=== PATIENT | female | born 1960 | race Caucasian/White ===

== ENCOUNTER 2020-09-12 08:04 | Outpatient (REF) | payer OTHER, SELFPAY ==
--- NOTE | ~2020-09-12 | MM_ITS ---
EXAMINATION: MM SCREENING DIGITAL BREAST TOMOSYNTHESIS, BILATERAL CLINICAL INFORMATION: Screening. Asymptomatic. The lifetime risk of breast cancer based on the Tyrer-Cuzick Model is 7%. COMPARISON: Mammography: 04/22/2019, 04/02/2018 TECHNIQUE: Digital breast tomosynthesis is performed in both the craniocaudal and mediolateral oblique views along with computer-aided detection (CAD). Synthesized 2D images are generated from the tomosynthesis. FINDINGS: There are scattered areas of fibroglandular density (ACR BI-RADS breast composition Category b). There are no significant masses, abnormal calcifications, or other abnormalities. There is a smooth oval nodule again seen mid upper outer left breast similar to prior exams. No developing density. The axilla and skin contours are unremarkable. MM/MM tomosynthesis screening BI IMPRESSION: No significant changes from prior exams. ASSESSMENT: BI-RADS 2: Benign RECOMMENDATION: Routine annual mammography screening. This patient's information was entered into a reminder system with a target due date for their next mammogram.
== END 2020-09-12 08:05 | disposition home or self-care (01) ==
LOC: HO.MAMMO 08:04
PROVIDERS: Visit Provider Family Medicine
DX: Z12.31 Encounter for screening mammogram for malignant neoplasm of breast (principal)
CPT/HCPCS: 77063; 77067

== ENCOUNTER 2021-09-13 14:36 | Outpatient (REF) | payer OTHER, SELFPAY ==
--- NOTE | ~2021-09-13 | MM_ITS ---
EXAMINATION: MM SCREENING DIGITAL BREAST TOMOSYNTHESIS, BILATERAL CLINICAL INFORMATION: Screening. Asymptomatic. The lifetime risk of breast cancer based on the Tyrer-Cuzick Model is 8%. COMPARISON: Mammography: 09/12/2020, 04/22/2019, 04/02/2018 TECHNIQUE: Digital breast tomosynthesis is performed in both the craniocaudal and mediolateral oblique views along with computer-aided detection (CAD). Synthesized 2D images are generated from the tomosynthesis. FINDINGS: There are scattered areas of fibroglandular density (ACR BI-RADS breast composition Category b). There are no significant masses, abnormal calcifications, or other abnormalities. Parenchymal pattern is similar to prior exams. Again, there is smooth nodule mid outer left breast similar to prior studies. The axilla are unremarkable. No significant changes. MM/MM tomosynthesis screening BI IMPRESSION: No mammographic evidence of malignancy. ASSESSMENT: BI-RADS 2: Benign RECOMMENDATION: Routine annual mammography screening. This patient's information was entered into a reminder system with a target due date for their next mammogram.
== END 2021-09-13 14:37 | disposition home or self-care (01) ==
LOC: HO.MAMMO 14:36
PROVIDERS: PCP Family Medicine; Visit Provider Family Medicine
DX: Z12.31 Encounter for screening mammogram for malignant neoplasm of breast (principal)
CPT/HCPCS: 77063; 77067

== ENCOUNTER 2021-11-18 15:45 | Emergency (ER) | payer OTHER, SELFPAY | END 2021-11-18 16:48 | disposition left against medical advice (07) | PROVIDERS: Emergency Provider Emergency Medicine | DX: S09.90XA Unspecified injury of head, initial encounter (principal); W19.XXXA Unspecified fall, initial encounter; Y93.9 Activity, unspecified; Y92.9 Unspecified place or not applicable; Y99.9 Unspecified external cause status ==

== ENCOUNTER 2021-11-26 13:17 | Outpatient (REF) | payer OTHER, SELFPAY ==
--- NOTE | ~2021-11-26 | CT_ITS ---
EXAMINATION: CT HEAD WITHOUT CONTRAST CLINICAL INFORMATION: 61-year-old with history of concussion. COMPARISON: None. TECHNIQUE: Contiguous axial imaging was performed from the skull base to vertex without intravenous administration of contrast. This CT examination was performed using dose optimization techniques as appropriate, variously including the following: *Automated exposure control *Adjustment of mA and/or kV according to patient size (this includes techniques or standardized protocols for targeted exams where dose is matched to indication/reason for exam; i.e. extremities or head) *Use of iterative reconstruction technique DLP: 712 mGy-cm. FINDINGS: Brain Volume: Normal for age within the limitations of qualitative assessment. Structural: No malformations. Brain and Meninges: The brain parenchyma is normal in morphology and attenuation. Zavala-white matter differentiation is well maintained. Mildly prominent perivascular spaces noted in the inferolateral basal ganglia. No evidence for intracranial hemorrhage, extra-axial fluid collection, significant space-occupying process or mass effect. Bilateral carotid siphon calcifications are noted. Ventricles and Subarachnoid Spaces: The ventricular system and subarachnoid spaces are within normal limits without hydrocephalus. Orbital Structures: Note is made of a blowout fracture involving the right orbital floor, with some prolapse of orbital fat into the roof of the right maxillary sinus. The adjacent inferior rectus muscle is not displaced or radiographically entrapped, but this should be correlated with ophthalmologic examination to exclude the possibility of extraocular muscle dysfunction. There are some nonspecific streaky densities in the retrobulbar orbital fat on the right adjacent to the optic nerve and posterior scleral margin which are nonspecific findings. Osseous Structures, Sinuses/Mastoids, Extracranial Soft Tissues: Note is made of a 2.9 x 2.3 x 1.2 cm soft tissue mass within the subcutaneous fat just above the right upper lid, suggesting a hematoma. The calvarium appears intact. The mastoids and middle ear cavities are unopacified. The remainder of the paranasal sinuses are unopacified. CT/CT head/brain wo con IMPRESSION: 1. Right orbital blowout fracture noted with a 2.9 cm probable right supraorbital hematoma and nonspecific minimal streaky opacities are within the right retrobulbar fat. Recommend facial bone/orbital CT for more detailed evaluation if clinically warranted. 2. Unremarkable noncontrast CT of the brain. No definite post-traumatic intracranial sequelae identified. The [facility] staff will call to confirm receipt of this report with acknowledgement of the findings and any recommendations.
== END 2021-11-26 13:18 | disposition home or self-care (01) ==
LOC: HO.CT 13:17
PROVIDERS: Visit Provider Physician Assistant
DX: S06.0X0A Concussion without loss of consciousness, initial encounter (principal)
CPT/HCPCS: 70450

== ENCOUNTER 2022-09-25 15:18 | Outpatient (REF) | payer OTHER, SELFPAY ==
--- NOTE | ~2022-09-25 | MM_ITS ---
EXAMINATION: MM SCREENING DIGITAL BREAST TOMOSYNTHESIS, BILATERAL CLINICAL INFORMATION: Screening. Asymptomatic. The lifetime risk of breast cancer based on the Tyrer-Cuzick Model is 7%. COMPARISON: Mammography: 09/13/2021, 09/12/2020, 04/22/2019 TECHNIQUE: Digital breast tomosynthesis is performed in both the craniocaudal and mediolateral oblique views along with computer-aided detection (CAD). Synthesized 2D images are generated from the tomosynthesis. FINDINGS: There are scattered areas of fibroglandular density (ACR BI-RADS breast composition Category b). There are no significant masses, abnormal calcifications, or other abnormalities. Parenchymal pattern is similar to prior studies. There is no developing density or architectural abnormality. Smooth nodular asymmetry mid 2:30 left breast is similar to prior exams. The axilla and skin contours are unremarkable. No significant changes. MM/MM tomosynthesis screening BI IMPRESSION: No mammographic evidence of malignancy. ASSESSMENT: BI-RADS 2: Benign RECOMMENDATION: Routine annual mammography screening. This patient's information was entered into a reminder system with a target due date for their next mammogram.
== END 2022-09-25 15:19 | disposition home or self-care (01) ==
LOC: HO.MAMMO 15:18
PROVIDERS: PCP Family Medicine; Visit Provider Family Medicine
DX: Z12.31 Encounter for screening mammogram for malignant neoplasm of breast (principal)
CPT/HCPCS: 77063; 77067

== ENCOUNTER 2023-01-13 07:22 | Outpatient (REF) | payer OTHER, SELFPAY ==
--- NOTE | ~2023-01-13 | MR_ITS ---
EXAMINATION: MR BRAIN WITHOUT CONTRAST CLINICAL INFORMATION: Dizziness. COMPARISON: None. TECHNIQUE: Multiplanar, multisequence imaging of the brain was performed without contrast. Slightly limited study with motion artifacts. FINDINGS: No diffusion abnormalities are identified to suggest an acute infarct. The ventricles are normal in size. No mass effect or midline shift is seen. Nonspecific mild scattered white matter signal changes may be due to chronic microangiopathy. No extra-axial fluid collections are seen. The brainstem and cerebellum are normal. The gradient refocused acquisition is normal. The craniovertebral junction, marrow signal, and midline structures are normal. The major intracranial flow voids at the level of the [place] are preserved. The dural venous sinus flow voids are maintained. The mastoid air cells are well aerated. Mild anterior ethmoid sinus mucosal thickening noted. Fusion hardware partially visualized anteriorly and posteriorly in the cervical spine from the C3-C5 levels with a strut graft in place at the C4 level, status post a prior corpectomy. MR/MR head/brain wo con IMPRESSION: Mild chronic white matter microangiopathy. No acute process.
== END 2023-01-13 07:23 | disposition home or self-care (01) ==
LOC: HO.MRI 07:22
PROVIDERS: PCP Family Medicine; Visit Provider Family Medicine
DX: R42 Dizziness and giddiness (principal)
CPT/HCPCS: 70551

== ENCOUNTER 2023-04-22 06:33 | Emergency (ER) | payer OTHER, SELFPAY ==
--- NOTE | ~2023-04-22 | CT_ITS ---
EXAMINATION: CT ABDOMEN AND PELVIS WITH CONTRAST CLINICAL INFORMATION: Diffuse abdominal pain. Diarrhea. History of diverticulitis. COMPARISON: CT abdomen pelvis December 26, 2017 TECHNIQUE: Multidetector volumetric images were obtained from the superior aspect of the liver through the pubic symphysis following administration 85 mL of Omnipaque 350 intravenous contrast. Sagittal and coronal reformatted images were obtained on the technologist's workstation. This CT examination was performed using dose optimization techniques as appropriate, variously including the following: *Automated exposure control *Adjustment of mA and/or kV according to patient size (this includes techniques or standardized protocols for targeted exams where dose is matched to indication/reason for exam; i.e. extremities or head) *Use of iterative reconstruction technique DLP: 491 mGy-cm FINDINGS: Mild patchy airspace disease of the posterior lateral right lung base with subtle patchy airspace disease of the posterior left lung base, nonspecific. The liver is normal in size. The gallbladder is normal in appearance. The pancreas, spleen and right adrenal gland are unremarkable. There is similar mild nodularity of the left adrenal gland, nonspecific. Symmetrically enhancing kidneys without hydronephrosis. Subcentimeter hypodensity within the lower pole the left kidney is most suggestive of a cyst. Stomach is decompressed and therefore not accurately evaluated. Normal caliber loops of small and large bowel. Similar surgical changes of the left. Moderate colonic diverticulosis. There is a localized area of pericolonic stranding within the proximal transverse colon which is most suggestive of active diverticulitis. There is no complicating abscess. Normal caliber abdominal aorta demonstrating moderate atherosclerotic disease. No retroperitoneal lymphadenopathy. Tiny fat-containing umbilical and supraumbilical hernias. Bladder is normal in appearance. Unremarkable CT appearance of the uterus. No gross free pelvic fluid. No inguinal lymphadenopathy. Mild to moderate diffuse degenerative changes of the spine. Similar chronic lytic lesion of the posterior right ilium. CT/CT abdomen pelvis w IV con IMPRESSION: 1. Active diverticulitis of the proximal transverse colon. No complicating abscess. 2. Mild patchy airspace disease of the lung bases, suspect infectious versus inflammatory process. Clinical correlation recommended. Fleischner guidelines were followed.
--- NOTE | ~2023-04-22 | XR_ITS ---
EXAMINATION: XR CHEST CLINICAL INFORMATION: Patchy bibasilar infiltrates on CT chest 04/22/2023. COMPARISON: None available. TECHNIQUE: Frontal view of the chest was obtained. FINDINGS: The lungs are hyperinflated with ill-defined opacity in both lower lung bases slightly greater on the right. The upper lungs are clear. The heart size and pulmonary vascularity is within normal limits. No gross bony abnormality. XR/XR chest 1V IMPRESSION: Hyperinflated lungs with ill-defined opacity/infiltrate/atelectasis in both lower lung bases slightly greater on the right. A lateral view would to have been more confirmatory.
--- NOTE | ~2023-04-22 | XR_ITS ---
EXAMINATION: XR CHEST CLINICAL INFORMATION: Bilateral lower lobe patchy airspace disease on CT 04/22/2023. COMPARISON: PA chest and CT chest performed earlier today. TECHNIQUE: Lateral view of the chest was obtained. FINDINGS: On lateral view the lungs there is minimal patchy opacity in the lung bases. It is not abnormal to the same extent seen on the CT chest exam. XR/XR chest 1V IMPRESSION: Patchy opacity seen on CT is best visualized on the CT abdomen exam. The chest PA and lateral views do not add any value to the finding.
[2023-04-22 06:45] VITALS: BP 174/89; PULSE 108; RESP 16; TEMP 36.6; O2SAT 98; BMI 24.8
--- NOTE | 2023-04-22 06:46 | ED.ABDPAIN ---
HPI - Abdominal Pain General Chief Complaint: Abdominal Pain Stated Complaint: Abd pain Time Seen by Provider: 04/22/23 06:44 Source: patient, RN notes reviewed and old records reviewed Mode of arrival: ambulatory History of Present Illness HPI narrative: 63-year-old female with a past medical history of diverticulosis/diverticulitis s/p bowel resection, presenting to the ED complaining of diffuse abdominal pain, bloating, nausea, and nonbloody diarrhea x6 days. Denies fever, chills, vomiting, dysuria/hematuria. States pain feels similar to prior diverticulitis in the past MD elicited complaint: abdominal pain Related Data Previous Rx's Medication Instructions Recorded amoxicillin 875 mg-potassium 1 tab PO TID 7 days #21 tabs 04/22/23 clavulanate 125 mg tablet Allergies Allergy/AdvReac Type Severity Reaction Status Date / Time Sulfa (Sulfonamide Allergy Severe SWELLING Unverified 02/02/20 15:54 Antibiotics) [SULFA (SULFONAMIDE ANTIBIOTICS)] varenicline [From CHANTIX] Allergy Unknown NIGHTMARES Unverified 02/02/20 15:54 Review of Systems Review of Systems Constitutional: No Fever, No Chills ENT/Mouth: No Ear Pain, No Nasal Congestion, No Sinus Pain, No Hoarseness, No sore throat, No Rhinorrhea, No Swallowing Difficulty Cardiovascular: No Chest Pain, No SOB Respiratory: No Cough, No Sputum, No Wheezing Gastrointestinal: + Nausea, No Vomiting, + Diarrhea, No Constipation, + Abdominal pain Genitourinary: No Dysuria, No Urinary Frequency, No Hematuria, No Urinary Incontinence/retention, No Flank Pain Musculoskeletal: No joint pain, No Myalgias, No Joint Swelling Skin: No Skin Lesions, No rash Neuro: No Weakness, No Numbness, No Paresthesias Yes all other systems are reviewed and are negative Constitutional: Reports as per HPI ON LICENSE OF [facility] Past Medical History Attestation statement: The following information was validated with the patient. Source: old records reviewed Social History Social History Unable to assess alcohol history related to: Unknown Smoked in Last 30 Days: Yes Use of substances other than those prescribed or required for medical reasons: Unknown Advance Directives: No Advance Directives Information Provided: Yes Physical Exam ED Vital Signs: Vital Signs - 24 hr 04/22/23 06:45 04/22/23 11:07 Temperature 97.9 F Pulse Rate 108 H 79 Respiratory Rate 16 14 Blood Pressure 174/89 H 131/80 Pulse Oximetry 98 98 Oxygen Delivery Method Room Air Room Air BMI result Body Mass Index 24.8 Const General: cooperative, healthy appearing and no acute distress Orientation/consciousness: patient oriented x3 Limitations: no limitations HENMT Head: Yes normal to inspection and Yes atraumatic Ears: hearing grossly normal bilaterally General nose exam: Normal external nose present Face and sinus: Yes normal facial exam Eyes General: appearance normal, both eyes and all related structures EOM: EOMs intact bilaterally Neck Neck: Yes normal visual inspection and Yes no meningeal signs Resp Effort & Inspection: normal respiratory effort and no respiratory distress Auscultation: clear to auscultation bilaterally Cardio Rate: regular rate Heart sounds: S1 normal heart sound present and S2 normal heart sound present GI Inspection: Yes normal to inspection Palpation (GI): Soft to palpation, Tenderness to palpation present (GI) (Diffusely) with no rebound tenderness, no guarding and not rigid General: Yes no CVA tenderness Back/Spine/Pelvis Back: no CVA tenderness Skin Rashes: no rashes Wounds: no wounds Neuro General: patient oriented x3, tone normal and no meningeal signs Cranial nerves: Yes CN's II-XII intact bilaterally Gait exam (Neuro): Normal gait present Extrem General: Yes normal to inspection Course Course Course Narrative: -labs reassuring. UA negative CT abdomen pelvis w IV con IMPRESSION: 1. Active diverticulitis of the proximal transverse colon. No complicating abscess. 2. Mild patchy airspace disease of the lung bases, suspect infectious versus inflammatory process. Clinical correlation recommended. Fleischner guidelines were followed. > obtain chest x-ray for further evaluation. P.o. Augmentin ordered. XR chest 1V IMPRESSION: Hyperinflated lungs with ill-defined opacity/infiltrate/atelectasis in both lower lung bases slightly greater on the right. A lateral view would to have been more confirmatory. > lateral view ordered XR chest 1V IMPRESSION: Patchy opacity seen on CT is best visualized on the CT abdomen exam. The chest PA and lateral views do not add any value to the finding. > patient without respiratory symptoms. Pneumonia unlikely. Will be treated with Augmentin outpatient for diverticulitis. Reports symptomatic improvement in the ED. Results discussed and recommended follow-up with PCP with outpatient repeat x-ray in 1-2 weeks - Results discussed with patient including worrisome signs and symptoms and strict return precautions, and when to return to the emergency department. They verbalized understanding and feel safe for discharge at this time. Medical Decision Making Medical Decision Making [facility] Narrative: 63-year-old female with a past medical history of diverticulosis/diverticulitis s/p bowel resection, presenting to the ED complaining of diffuse abdominal pain, bloating, nausea, and nonbloody diarrhea x6 days. On exam tachycardic likely from pain, NAD, nontoxic appearing, abdomen soft diffusely tender, no rebound or guarding, no CVAT. Concern for diverticulitis vs colitis vs appendicitis vs pancreatitis/cholecystitis/lithiasis. Lower suspicion for SBO, ischemic bowel or perforation. low suspicion for severe sepsis at the start Plan: Labs, UA, CT AP, IVF, pain control. Please refer to course for remaining clinical decision making, interpretation of labs/imaging results, and discussions with consultants and/or family members. Differential Diagnosis Differential Diagnoses: The differential diagnosis associated with the presentation includes As above Admission/Observation Consideration of admission/observation: Escalation of care including admission/observation considered Lab Data [facility] Lab Attestation statement: I reviewed the patient's lab results. 04/22/23 07:35 04/22/23 07:35 Labs: Lab Results 04/22/23 04/22/23 04/22/23 Range/Units 07:30 07:31 07:35 WBC 7.0 (4.8-10.8) X10*3/uL RBC 4.43 (4.20-5.50) X10*6/uL Hgb 13.4 (12.0-16.0) g/dl Hct 40.1 (37.0-47.0) % MCV 90.5 (80.0-98.0) fL MCH 30.2 (27.0-33.0) pg MCHC 33.4 (31.0-35.0) g/dl RDW 13.2 (11.0-16.0) % Plt Count 490 H (160-400) X10*3/uL MPV 10.8 (9.4-12.3) fL Immature Gran % (Auto) 0.4 (0.0-0.4) % Neut % (Auto) 70.6 (45-73) % Lymph % (Auto) 15.5 L (20-40) % [place] % (Auto) 11.7 H (2-11) % Eos % (Auto) 1.4 (0-4) % Baso % (Auto) 0.4 (0-2) % Lymph # (Auto) 1.1 L (1.2-4.9) X10*3/uL [place] # (Auto) 0.8 (0.1-1.2) X10*3/uL Eos # (Auto) 0.1 (0.0-0.4) X10*3/uL Baso # (Auto) 0.0 (0.0-0.2) X10*3/uL Abs Immat Gran (auto) 0.03 (0.00-0.03) X10*3/uL Absolute Neuts (auto) 4.9 (2.0-8.3) x10*3/uL Absolute Nucleated RBC 0.000 (0.0-0.012) X10*3/uL Nucleated RBC % (auto) 0.0 (0.0-0.2) /100WBC Sodium 133 L (135-145) mmol/L Potassium 4.1 (3.3-5.1) mmol/L Chloride 100 (96-108) mmol/L Carbon Dioxide 25 (22-29) mmol/L Anion Gap 12 (12-20) BUN 12 (9-16) mg/dL Creatinine 0.72 (0.5-1.4) mg/dL Estim Creat Clear Calc 71.9 Estimated GFR > 60 Random Glucose 106 (60-115) mg/dL Calcium 9.2 (8.4-10.2) mg/dL Magnesium 2.0 (1.6-2.6) mg/dL Total Bilirubin 0.5 (0.0-1.0) mg/dL Direct Bilirubin 0.2 (0.0-0.5) mg/dL AST 13 (5-31) U/L ALT 11 (0-31) U/L Alkaline Phosphatase 130 H (39-117) U/L Total Protein 6.7 (6.5-8.0) g/dL Albumin 4.0 (3.5-5.0) g/dL Lipase 20 (8-78) U/L Urine Color Dark Yellow Urine Appearance Clear Urine pH 5.5 (5.0-9.0) Ur Specific [place] 1.020 (1.005-1.025) Urine Protein Negative (Neg-Trace) mg/dL Urine Glucose (UA) Negative (Negative) mg/dL Urine Ketones Negative (Negative) mg/dL Urine Blood Negative (Negative) Urine Nitrite Negative (Negative) Ur Leukocyte Esterase Trace H (Negative) Urine RBC 0-2 (0-2) /HPF Urine WBC 0-5 (0-5) /HPF Ur Squamous Epith Cells 3-5 (0-2) /HPF Urine Bacteria None Seen (None Seen) Hyaline Casts 0-2 (0-2) /LPF Urine Test NEGATIVE (NEGATIVE) Radiology Impression Discussion of test interpretation with radiology: I have reviewed the radiologist's reading. External Record Review External record reviewed: Inpatient record, Office record, Outpatient record, Prior outpatient labs, Prior outpatient radiology, Primary care record and Outside ED record Tests considered The following testing was considered but not selected: As above Prescription Management I considered prescription management with: Pain Medication and Antibiotic Medications Administered Discontinued Medications Generic Name Dose Route Start Last Admin Trade Name Freq PRN Reason Stop Dose Admin Amoxicillin/Clavulanate Potassium 875 mg 04/22/23 09:23 04/22/23 09:44 Amoxicillin/Potassium Clav 875 Mg Tablet PO 04/22/23 09:24 875 mg ONCE ONE Administration Sodium Chloride 1,000 mls @ 999 mls/hr 04/22/23 07:00 04/22/23 08:34 Ns IV 04/22/23 08:00 Infused .Q1H1M PRISCILA Infusion Iohexol 85 ml 04/22/23 08:37 04/22/23 08:38 Iohexol 350 Mg/Ml 75 Ml Infus..Btl IV 04/22/23 08:38 85 ml ONCE ONE Administration Ketorolac Tromethamine 15 mg 04/22/23 06:49 04/22/23 07:37 Ketorolac Tromethamine 15 Mg/Ml Vial IVPUSH 04/22/23 06:50 15 mg ONCE ONE Administration Ondansetron HCl 4 mg 04/22/23 06:49 04/22/23 07:37 Ondansetron Hcl 4 Mg/2 Ml Vial IVPUSH 12/06/23 06:50 4 mg ONCE ONE Administration Discharge Plan Discharge Clinical Impression: Diverticulitis Patient Disposition: Home, Self-Care Instructions: Diverticulitis (ED), Diverticulitis Diet (ED) Additional Instructions: You have diverticulitis. Augmentin is antibiotic please take as prescribed Practice of bland diet Plenty of fluids Please follow-up with your doctor and Gastroenterology. If her symptoms persist or worsen pain becomes unbearable you have persistent nausea/vomiting or fever return to the ED Prescriptions: New amoxicillin-pot clavulanate 875-125 mg tablet 1 tab PO TID 7 Days Qty: 21 0RF Referrals: [facility] [place] G[facility] [Provider Group] Ellen Gar MD [Primary Care Provider] - 1 week Stand Alone Forms: Work/School Release
[2023-04-22] MEDS: Ketorolac Tromethamine 15 MG/ML VIAL IVPUSH (07:37)
[2023-04-22] MEDS: 0.9 % Sodium Chloride 1,000 ML 999 ML IV (07:37)
[2023-04-22] MEDS: ondansetron HCL 4 MG/2 ML VIAL IVPUSH (07:37)
[2023-04-22 07:47] LABS: MANUAL DIFF FLAG NO
[2023-04-22 07:52] LABS: Appearance Urine Clear; Color Urine Dark Yellow; Glucose Urine UA Negative (Negative); Leukocyte Esterase Urine Trace (Negative); Nitrite Urine Negative (Negative); PH 5.5 (5.0-9.0); UMIC TRIGGER UACC YES; Urine Blood Negative (Negative); Urine Ketones Negative (Negative); Urine Protein Negative (Neg-Trace)
[2023-04-22 07:53] LABS: Basophils Percent Auto 0.4 % (0-2); Eosinophils Absolute Auto 0.1 X10*3/uL (0.0-0.4); Eosinophils Percent Auto 1.4 % (0-4); Hematocrit 40.1 % (37.0-47.0); Hemoglobin 13.4 g/dl (12.0-16.0); Imm Gran Abs Auto 0.03 X10*3/uL (0.00-0.03); Imm Gran Pct Auto 0.4 % (0.0-0.4); Lymphocytes Absolute Auto 1.1 X10*3/uL (1.2-4.9); Lymphocytes Percent Auto 15.5 % (20-40); Mean Corpuscular HGB Conc 33.4 g/dl (31.0-35.0); Mean Corpuscular Hemoglobin 30.2 pg (27.0-33.0); Mean Corpuscular Volume 90.5 fL (80.0-98.0); Mean Platelet Volume 10.8 fL (9.4-12.3); Monocytes Absolute Auto 0.8 X10*3/uL (0.1-1.2); Monocytes Percent Auto 11.7 % (2-11); Neutrophils Absolute Auto 4.9 x10*3/uL (2.0-8.3); Neutrophils Percent Auto 70.6 % (45-73); Platelet Count 490 X10*3/uL (160-400); Red Blood Count 4.43 X10*6/uL (4.20-5.50); Red Cell Distribution Width 13.2 % (11.0-16.0)
[2023-04-22 07:53] LABS: UPreg QC Valid YES; Urine Pregnancy NEGATIVE (NEGATIVE)
[2023-04-22 07:57] LABS: Bacteria Urine None Seen (None Seen); Hyaline Casts Urine 0-2 /LPF (0-2); RBC Urine 0-2 /HPF (0-2); WBC Urine 0-5 /HPF (0-5)
[2023-04-22 08:05] LABS: Alanine Aminotransferase 11 U/L (0-31); Alkaline Phosphatase 130 U/L (39-117); Anion Gap 12 (12-20); Aspartate Amino Transferase 13 U/L (5-31); Bilirubin Direct 0.2 mg/dL (0.0-0.5); Bilirubin Total 0.5 mg/dL (0.0-1.0); Blood Urea Nitrogen 12 mg/dL (9-16); Calcium 9.2 mg/dL (8.4-10.2); Carbon Dioxide 25 mmol/L (22-29); Chloride 100 mmol/L (96-108); Creatinine Clr Calc Pharmacy 71.9; Estimated Glomerular Filt Rate > 60; Glucose Random 106 mg/dL (60-115); Lipase 20 U/L (8-78); Potassium 4.1 mmol/L (3.3-5.1); Sodium 133 mmol/L (135-145); Total Protein 6.7 g/dL (6.5-8.0)
[2023-04-22] MEDS: iohexoL 350 MG/ML 75 ML INFUS..BTL 85 ML IV (08:38)
[2023-04-22] MEDS: Amoxicillin/Potassium Clav 875 MG TABLET PO (09:44)
[2023-04-22 11:07] VITALS: BP 131/80; PULSE 79; RESP 14; O2SAT 98
[2023-04-22 11:42] VITALS: BP 157/78; PULSE 97; RESP 18; TEMP 36.6; O2SAT 97
== END 2023-04-22 11:43 | disposition home or self-care (01) ==
PROVIDERS: Physician Assistant; Emergency Provider Emergency Medicine Emergency Medical Services; PCP Family Medicine
DX: K57.32 Diverticulitis of large intestine without perforation or abscess without bleeding (principal)
CPT/HCPCS: 36415; 71045; 74177; 80048; 80076; 81001; 81025; 83690; 83735; 85025; 96361; 96374; 96375; 99284; 99285; J1885; J2405; Q9967

== ENCOUNTER 2023-10-01 15:06 | Outpatient (REF) | payer OTHER, SELFPAY | END 2023-10-01 15:07 | disposition home or self-care (01) | LOC: HO.MAMMO 15:06 | PROVIDERS: PCP Family Medicine; Visit Provider Family Medicine | DX: Z12.31 Encounter for screening mammogram for malignant neoplasm of breast (principal) | CPT/HCPCS: 77063; 77067 ==

== ENCOUNTER → 2023-10-01 15:15 | Outpatient (BNV) | payer OTHER, SELFPAY | PROVIDERS: PCP Family Medicine; Visit Provider Radiology Diagnostic Radiology | DX: Z12.31 Encounter for screening mammogram for malignant neoplasm of breast (principal) | CPT/HCPCS: 77063; 77067 ==

== ENCOUNTER 2024-07-18 15:15 | Outpatient (RCR) | payer OTHER, SELFPAY | END 2024-07-29 15:47 | disposition home or self-care (01) | LOC: HO.WCC 15:15 | PROVIDERS: PCP Family Medicine; Visit Provider Surgery | DX: S91.312D Laceration without foreign body, left foot, subsequent encounter (principal); I73.00 Raynaud's syndrome without gangrene; X58.XXXD Exposure to other specified factors, subsequent encounter | CPT/HCPCS: 11042; 97597; 99212; 99213 ==

== ENCOUNTER 2024-10-25 14:03 | Outpatient (REF) | payer OTHER, SELFPAY ==
--- OUTSIDE RECORDS SUMMARY | 2024-10-25 16:50 | XMS_ITS | Clinical Summary ---
Author Organization [facility] Address [address] [id number] Care Team Providers Care [facility] Aide Name Role Phone Ellen Lemus MD Primary Care Prov ider Allergies Active Allergy Reactions Criticality Noted Date Comments Other 01/07/2019 Medications Medication Sig Dispensed Refills Start Date End Date Status omeprazole (PriLOSEC) 40 MG capsule Take 1 capsule by mouth. 0 Active naproxen (NAPROSYN) 500 MG tablet TAKE 1 TABLET BY MOUTH TWICE A DAY WITH FOOD 0 04/24/2020 Active baclofen (LIORESAL) 10 MG tablet TAKE 1 TABLET BY MOUTH THREE TIMES A DAY NEEDED FOR 7 DAYS 0 03/22/2020 Active nicotine (NICODERM CQ) 21 MG/24HR 1 patch daily. 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/01/2020 Family History Medical History Relation Name Comments Cancer Father Relation Name Status Comments Father Social History Tobacco Use Types Packs/Day Years Used Date Smoking Tobacco: Never Assessed Sex and Gender Information Value Date Recorded Sex Assigned at Not on file Gender Identity Not on file Sexual Orientation Not on file Job Start Date Occupation Industry Not on file Not on file Not on file Last Filed Vital Signs Vital Sign Reading Time Taken Comments Blood Pressure - - Pulse - - Temperature - - Respiratory Rate - - Oxygen Saturation - - Inhaled Oxygen Concentration - - Weight 69.4 kg (153 lb) 08/31/2020 8:19 AM EDT Height 165.1 cm (5' 5 ) 08/31/2020 8:19 AM EDT Body Mass Index 25.46 08/31/2020 8:19 AM EDT Plan of Treatment Health Maintenance Due Date Last Done Comments Hepatitis C Screening 1960 COVID-19 Vaccine (#1) 1960 Pneumococcal Vaccine (1 of 2 - PCV) 1966 Pneumococcal Vaccine (1 of 2 - PCV) 1966 Depression Screening 1972 BMI Counseling 1978 Preventative Health Evaluation 1978 DTap / Tdap / Td (1 - Tdap) 1979 Cervical Cancer Screening (P ap Smear) 1981 Colon Cancer Screening (Colonoscopy) 2005 Breast Cancer Screening (Mammogram) 2010 Shingrix-Zoster Vaccine (1 of 2) 2010 Influenza Vaccine (Season Ended) 2025 RSV Adult > 60+ Yrs or Pregn ant (1 - 1-dose 75+ series) 2035 Hepatitis B Vaccines Aged Out No long er eligible based on patient's age to complete this topic RSV Ped < 20 months Aged Out No longe r eligible based on patient's age to complete this topic Care Teams Campus Aide Relationship Specialty Start Date End Date Ellen Lemus MD [address] [place] [id number] PCP - General Family Medicine 04/24/20
== END 2024-10-25 14:04 | disposition home or self-care (01) ==
LOC: HO.MAMMO 14:03
PROVIDERS: PCP Family Medicine; Visit Provider Family Medicine
DX: Z12.31 Encounter for screening mammogram for malignant neoplasm of breast (principal)
CPT/HCPCS: 77063; 77067

== ENCOUNTER → 2024-10-25 14:15 | Outpatient (BNV) | payer OTHER, SELFPAY | PROVIDERS: PCP Family Medicine; Visit Provider Internal Medicine | DX: Z12.31 Encounter for screening mammogram for malignant neoplasm of breast (principal) | CPT/HCPCS: 77063; 77067 ==

== ENCOUNTER 2025-03-29 15:00 | Outpatient (RCR) | payer MEDICARE, OTHER, SELFPAY | END 2025-03-29 15:35 | disposition home or self-care (01) | LOC: HO.PT 15:00 | PROVIDERS: PCP Family Medicine; Visit Provider Nurse Practitioner Family | DX: M62.838 Other muscle spasm (principal) | CPT/HCPCS: 97112; 97140; 97162 ==